=== PATIENT | female | born 1995 | race Hispanic/Latino ===

== ENCOUNTER 2024-09-09 10:29 | Day surgery (SDC) | payer OTHER ==
[2024-09-09] MEDS ORDERED: hydrALAZINE 20 MG/ML VIAL SLOW IVP PRN (11:15)
== END 2024-09-09 12:45 | disposition home health service (06) ==
LOC: CSHLD/OP 10:29
PROVIDERS: ATTEND Family Medicine
DX: O41.03X0 Oligohydramnios, third trimester, not applicable or unspecified (principal); O09.33 Supervision of pregnancy with insufficient antenatal care, third trimester; O99.013 Anemia complicating pregnancy, third trimester; D50.9 Iron deficiency anemia, unspecified; O99.283 Endocrine, nutritional and metabolic diseases complicating pregnancy, third trimester; E03.9 Hypothyroidism, unspecified; O26.841 Uterine size-date discrepancy, first trimester; Z79.890 Hormone replacement therapy; Z79.899 Other long term (current) drug therapy; Z3A.38 38 weeks gestation of pregnancy
CPT/HCPCS: 59025; 76819; 99282

== ENCOUNTER 2024-09-11 07:34 | Inpatient (IN) | payer OTHER ==
[2024-09-11] MEDS ORDERED: Tranexamic Acid 1,000 MG/10 ML VIAL IVP PRN (09:38)
[2024-09-11] MEDS ORDERED: Carboprost 250 MCG/ML AMP IM PRN (09:38)
[2024-09-11] MEDS ORDERED: hydrALAZINE 20 MG/ML VIAL SLOW IVP PRN ×2 (09:38→14:38)
[2024-09-11] MEDS ORDERED: Ondansetron PF 4 MG/2 ML Vial IVP PRN ×3 (09:38→14:38)
[2024-09-11] MEDS ORDERED: Lidocaine 1% (PF) 30 ML VIAL SC PRN (09:38)
[2024-09-11] MEDS ORDERED: Misoprostol 200 MCG TAB PR PRN (09:38)
[2024-09-11] MEDS ORDERED: Methylergonovine 0.2 MG/ML VIAL IM PRN ×2 (09:38→14:38)
[2024-09-11] MEDS ORDERED: Promethazine HCl 25 MG/ML VIAL IM PRN ×2 (09:38→10:51)
[2024-09-11] MEDS ORDERED: Ibuprofen 800 MG TAB PO PRN (09:38)
[2024-09-11] MEDS ORDERED: Lactated Ringer's 1,000 ML IV SCH (09:45)
[2024-09-11] MEDS ORDERED: Oxytocin 30 units/NS 500 ML 500 ML IV SCH ×4 (09:45→14:38)
[2024-09-11 10:12] VITALS: BMI 25.2
[2024-09-11 10:18] LABS: Hematocrit 41.6 % (34.9-44.5); Hemoglobin 13.7 g/dL (12.0-15.5); Mean Corpuscular HGB CONC 32.9 g/dL (32.0-36.0); Mean Corpuscular Hemoglobin 28.2 pg (27.0-33.0); Mean Corpuscular Volume 85.8 fL (81.6-98.3); Mean Platelet Volume 11.5 fL (7.4-10.4); Platelet Count 266 10x3/uL (150-450); RBC Distribution Width 17.2 % (11.5-14.5); Red Blood Cell (RBC) Count 4.85 10x6/uL (3.90-5.03); White Blood Cell (WBC) Count 8.9 10x3/uL (3.5-10.5)
[2024-09-11 10:25] LABS: Syphilis Antibody Nonreactive (Nonreactive); Syphilis Antibody Index 0.05 S/CO (<1.00 Non-Reactive)
[2024-09-11 10:26] LABS: HBsAg Index 0.18 S/CO (0-0.99); Hep B Surf Ag - L&D Non-Reactive S/CO (NonReactive)
[2024-09-11] MEDS: fentaNYL/Ropivacaine Epidural 100 ML ONE (10:37)
[2024-09-11] MEDS ORDERED: Naloxone HCl 0.4 mg/ml Vial IVP PRN ×2 (10:51)
[2024-09-11] MEDS ORDERED: diphenhydrAMINE 50 MG/ML VIAL IVP PRN (10:51)
[2024-09-11] MEDS ORDERED: ePHEDrine Sulfate 50 MG/10 ML VIAL SLOW IVP PRN (10:51)
[2024-09-11] MEDS ORDERED: Moisturizing Cream (Eucerin) 113 GM JAR TOP PRN (10:51)
[2024-09-11] MEDS ORDERED: Communication Order-Pharmacy FS SCH (11:00)
[2024-09-11] MEDS ORDERED: fentaNYL 2 mcg/Ropivacaine 0.2% Epidural 100 ML CADD EPIDURAL SCH (11:00)
[2024-09-11] MEDS ORDERED: Lactated Ringer's 500 ML IV PRN (11:00)
[2024-09-11] MEDS ORDERED: diphenhydrAMINE 25 MG CAP PO PRN (14:38)
[2024-09-11] MEDS ORDERED: HYDROcodone/Acetaminophen 5/325 mg Tablet PO PRN (14:38)
[2024-09-11] MEDS ORDERED: Preparation H Ointment 28 GM TUBE PR PRN (14:38)
[2024-09-11] MEDS ORDERED: Milk Of Magnesia 30 ML UDCUP PO PRN (14:38)
[2024-09-11] MEDS ORDERED: Boostrix 0.5 ML (Tdap) VIAL (>/=7 yrs of age) IM ONE (14:38)
[2024-09-11] MEDS ORDERED: Lanolin Ointment 7 GM TUBE TOP PRN (14:38)
[2024-09-11] MEDS ORDERED: Bisacodyl 10 MG SUPP PR PRN (14:38)
[2024-09-11] MEDS ORDERED: Benzocaine-Menthol 82.5 ML CAN TOP PRN (14:38)
[2024-09-11] MEDS: Acetaminophen 325 MG TAB PO PRN (15:16)
[2024-09-11] MEDS: Ibuprofen 800 MG TAB PO SCH ×2 (16:25→22:39)
[2024-09-11] MEDS: Ferrous Sulfate 325 MG TAB PO SCH (17:00)
[2024-09-11] MEDS: Misoprostol 200 MCG TAB ONE (18:59)
[2024-09-11] MEDS: Docusate 100 MG CAP PO SCH (21:18)
[2024-09-12] MEDS: Prenatal Vitamin 1 TAB PO SCH (07:58)
[2024-09-12] MEDS: Levothyroxine Sodium 88 MCG TAB PO SCH (09:23)
[2024-09-12 11:25] VITALS: BP 100/59; TEMP 98.2
== END 2024-09-12 13:25 | disposition home or self-care (01) | DRG 807 ==
LOC: CSHLD/OP 07:34 → CSHLD 09:14 → CSHPP 15:36
PROVIDERS: ADMIT Family Medicine; ATTEND Family Medicine
PROC: 10E0XZZ Delivery of Products of Conception, External Approach (ICD-10-PCS; principal; 2024-09-11)
PROC: 10907ZC Drainage of Amniotic Fluid, Therapeutic from Products of Conception, Via Natural or Artificial Opening (ICD-10-PCS; 2024-09-11)
DX: O99.284 Endocrine, nutritional and metabolic diseases complicating childbirth (principal); E03.9 Hypothyroidism, unspecified; O99.02 Anemia complicating childbirth; D50.9 Iron deficiency anemia, unspecified; Z37.0 Single live birth; Z3A.38 38 weeks gestation of pregnancy
CPT/HCPCS: 36415; 51702; 85027; 86780; 86850; 86900; 86901; 87340; 99285

== ENCOUNTER 2024-11-02 01:59 | Emergency (ER) | payer OTHER ==
[2024-11-02 02:33] LABS: Bilirubin Neg (Negative); Blood, Urine 25 (Negative); Clarity Clear (Clear); Glucose, Urine (Dipstick) Normal (Negative); Ketone, Urine Negative (Negative); Leukocyte 25 (Negative); Nitrite Negative (Negative); Protein, Urine (Dipstick) 30 mg/dl (Neg-Trace); Urobilinogen Normal mg/dL (Less than 2)
[2024-11-02 02:40] LABS: Pregnancy Test - Urine (BHCG) POSITIVE (Negative); Pregu Control Background? CLEAR/WHITE (CLR/WHITE); Pregu Control Bar Appear? YES (CONTROL BAR)
[2024-11-02 02:46] LABS: CAUTI Indications for Culture Fever or rigors; RBC/HPF 0-3 HPF (0-3)
[2024-11-02 02:47] LABS: Bacteria/HPF 2+ HPF (None Seen); Mucous/LPF 2+ LPF (<2+)
[2024-11-02 02:48] LABS: Urine Culture Reflex No No
[2024-11-02] MEDS ORDERED: Ondansetron PF 4 MG/2 ML Vial ONE (02:49)
== END 2024-11-02 04:09 | disposition home or self-care (01) ==
LOC: CSHERS 01:59
DX: R11.10 Vomiting, unspecified (principal); R19.7 Diarrhea, unspecified
CPT/HCPCS: 81001; 81025; 84702; 96361; 96374; J2405

== ENCOUNTER 2025-06-02 11:18 | Emergency (ER) | payer OTHER | END 2025-06-02 12:38 | disposition home or self-care (01) | LOC: CSHERS 11:18 | DX: H61.22 Impacted cerumen, left ear (principal); Z55.6 Problems related to health literacy; Z75.3 Unavailability and inaccessibility of health-care facilities | CPT/HCPCS: 99282 ==